=== PATIENT | male | born 1940 | race Caucasian/White ===

== ENCOUNTER 2017-02-28 14:07 | Emergency (ER) | payer OTHER ==
[~2017-02-28] VITALS: Ht 172.7 cm; Wt 115.0 kg
[2017-02-28 14:35] VITALS: BP 148/67; PULSE 64; RESP 18; TEMP 97.9; O2SAT 95
[2017-02-28] MEDS ORDERED: HYDR-3533 PO (15:09)
--- NOTE | 2017-02-28 16:11 | PD ---
HPI Chief Complaint: Allergic/Adverse Reaction Time Seen by Provider: 16:06 Travel History International Travel<30 days: No Contact w/Intl Traveler<30days: No Traveled to known affect area: No History of Present Illness HPI Patient [place] Department from the [place] after a near syncopal episode that occurred after getting a CT scan done today. Patient reports that his doctor told him take half a hydrocodone tablet as needed for pain for possible kidney stone however when the prescription arrived it stated to take a whole tablet. Patient states that he took 2 tablets yesterday and one today. Patient states that after the CAT scan done for possible kidney stone he was unable to get off the CAT scan secondary to feeling diaphoretic, dizzy, nauseous , and having left low back pain. Patient states he was taken to the triage area had some unknown medications injected of up his nose which alleviated his symptoms. Patient reports history of syncope in the past in the center for workup for this. 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 Patient reports that he had a cardiac cath lab radiology technologist that he had had for 2 years with no abnormalities noted. Patient denies any chest pain, shortness breath, fevers, vomiting, abdominal pain, neck pain, headache, or other concerns. Patient reports when he takes hydrocodone makes him feel loopy. EMS reports the patient 's respiratory rate was 13 prior to receiving Narcan at the [place]. [facility] Past Medical History Diabetes: Yes Hypertension: Yes Social History Tobacco Use: No Substance Use: No Allergies-Medications (Allergen,Severity, Reaction): Coded Allergies: codeine (Verified Allergy, Severe, Lethargy, 02/28/17) hydrocodone (Verified Allergy, Severe, Lethargy, 02/28/17) hydromorphone (Verified Allergy, Severe, Lethargy, 02/28/17) morphine (Verified Allergy, Severe, Lethargy, 02/28/17) Reported Meds & Prescriptions Reported Meds & Active Scripts Active Reported Lortab (Hydrocodone-Acetaminophen) 5-325 Mg Tab 1 Tab PO QID PRN Physical Exam Narrative GENERAL: Well-developed, overly nourished, in no acute distress, and non-ill appearing. SKIN: Focused skin assessment warm and dry. HEAD: Atraumatic. Normocephalic. EYES: Pupils equal and round. EOMI. No scleral icterus. No injection or drainage. ENT: No nasal bleeding or discharge. Mucous membranes pink and moist. NECK: Trachea midline. No JVD. Supple. No nuclear rigidity. CARDIOVASCULAR: Regular rate and rhythm. No murmur appreciated. RESPIRATORY: No accessory muscle use. No respiratory distress. Clear to auscultation. Breath sounds equal bilaterally. GASTROINTESTINAL: Abdomen soft, non-tender, nondistended, and no guarding. Hepatic and splenic margins not palpable. Normal bowel sounds 4. No pulsatile mass. MUSCULOSKELETAL: No obvious deformities. No clubbing. No cyanosis. No edema. Full range of motion. NEUROLOGICAL: Awake and alert. No obvious cranial nerve deficits. Motor grossly within normal limits. Normal speech. PSYCHIATRIC: Appropriate mood and affect; insight and judgment normal. Data Data Last Documented VS Vital Signs Date Time Temp Pulse Resp B/P (MAP) Pulse Ox O2 Delivery O2 Flow Rate FiO2 02/28/17 17:43 71 18 140/77 (98) 74 20 155/87 (109) 77 20 148/76 (100) 02/28/17 16:30 97 02/28/17 14:35 97.9 Orders Orders Blood Glucose (02/28/17 14:44) Iv Access Insert/Monitor (02/28/17 14:44) Electrocardiogram (02/28/17 16:06) Complete Blood Count With Diff (02/28/17 16:06) Comprehensive Metabolic Panel (02/28/17 16:06) Magnesium (Mg) (02/28/17 16:06) Ckmb (Isoenzyme) Profile (02/28/17 16:06) Troponin I (02/28/17 16:06) Act Partial Throm Time (Ptt) (02/28/17 16:06) Prothrombin Time / Inr (Pt) (02/28/17 16:06) Urinalysis - C+S If Indicated (02/28/17 16:06) Chest, Single Ap (02/28/17 16:06) Ct Brain W/O Iv Contrast(Rout) (02/28/17 16:06) Ecg Monitoring (02/28/17 16:06) Oximetry (02/28/17 16:06) Sodium Chloride 0.9% Flush (Ns Flush) (02/28/17 16:15) Orthostatic Vital Signs (02/28/17 16:06) Ct Abd/Pel W/O Iv Contrast (02/28/17 16:11) Ed Discharge Order (02/28/17 18:37) Labs Laboratory Tests Test 02/28/17 16:30 02/28/17 17:45 White Blood Count 12.5 TH/MM3 Red Blood Count 5.11 MIL/MM3 Hemoglobin 13.4 GM/DL Hematocrit 41.3 % Mean Corpuscular Volume 80.8 FL Mean Corpuscular Hemoglobin 26.1 PG Mean Corpuscular Hemoglobin Concent 32.3 % Red Cell Distribution Width 15.2 % Platelet Count 245 TH/MM3 Mean Platelet Volume 9.1 FL Neutrophils (%) (Auto) 82.8 % Lymphocytes (%) (Auto) 12.2 % Monocytes (%) (Auto) 4.0 % Eosinophils (%) (Auto) 0.5 % Basophils (%) (Auto) 0.5 % Neutrophils # (Auto) 10.4 TH/MM3 Lymphocytes # (Auto) 1.5 TH/MM3 Monocytes # (Auto) 0.5 TH/MM3 Eosinophils # (Auto) 0.1 TH/MM3 Basophils # (Auto) 0.1 TH/MM3 CBC Comment DIFF FINAL Differential Comment Prothrombin Time 10.7 SEC Prothromb Time International Ratio 1.0 RATIO Activated Partial Thromboplast Time 25.4 SEC Blood Urea Nitrogen 19 MG/DL Creatinine 1.00 MG/DL Random Glucose 156 MG/DL Total Protein 7.3 GM/DL Albumin 3.6 GM/DL Calcium Level 8.6 MG/DL Magnesium Level 1.5 MG/DL Alkaline Phosphatase 80 U/L Aspartate Amino Transf (AST/SGOT) 50 U/L Alanine Aminotransferase (ALT/SGPT) 59 U/L Total Bilirubin 0.4 MG/DL Sodium Level 138 MEQ/L Potassium Level 4.3 MEQ/L Chloride Level 104 MEQ/L Carbon Dioxide Level 23.0 MEQ/L Anion Gap 11 MEQ/L Estimat Glomerular Filtration Rate 73 ML/MIN Total Creatine Kinase 75 U/L Troponin I LESS THAN 0.02 NG/ML Urine Color YELLOW Urine Turbidity CLEAR Urine pH 5.0 Urine Specific [place] 1.020 Urine Protein TRACE mg/dL Urine Glucose (UA) TRACE mg/dL Urine Ketones 10 mg/dL Urine Occult Blood NEG Urine Nitrite NEG Urine Bilirubin NEG Urine Urobilinogen LESS THAN 2.0 MG/DL Urine Leukocyte Esterase MOD Urine RBC 2 /hpf Urine WBC 7 /hpf Urine Squamous Epithelial Cells 1 /hpf Urine Mucus FEW /lpf Microscopic Urinalysis Comment CULT NOT INDICATED MDM Medical Decision Making Medical Screen Exam Complete: Yes Emergency Medical Condition: Yes Interpretation(s) EKG reviewed by Dr. Lee shows normal sinus rhythm with ventricular is 64. Right bundle branch block. Left axis deviation. No STEMI. Last Impressions Head CT 02/28/17 1606 Signed Impressions: Service Date/Time: Tuesday, February 28, 2017 17:04 - CONCLUSION: Negative for an acute process. Mickey Panda MD FACR Chest X-Ray 02/28/17 1606 Signed Impressions: Service Date/Time: Sunday, February 28, 2017 16:14 - CONCLUSION: Compensated cardiomegaly otherwise negative Board Certified Radiologist. This report was verified electronically. CT the abdomen pelvis read by the radiologist shows: 1. Nonobstructing stone on the right. 2. I do not see any hydroureter to suggest a recently passed stone. 3. No other significant abnormality is appreciated. Differential Diagnosis Syncope, allergic reaction, unintentional overdose, electrolyte abnormality, renal calculi, vasovagal reaction, other Narrative Course Patient was seen and examined. Initial laboratory radiological studies were ordered. IV was established and patient was placed on cardiac monitoring. Patient in no obvious distress upon re-evaluation. Patient was monitored in the ER for little over 4 hours with no change in respiratory rate or mental status. All pertinent laboratory/Radiology result(s) discussed with patient/ family. Discussed patient with Dr. Lee prior to discharge, who is in agreement with plan of care and disposition. Any questions/concerns in reference to patient diagnosis/condition discussed and clarified prior to patient's discharge. Reinforced sheer importance of close follow up with patient 's primary physician or primary care clinic. Instructed patient to return to ED immediately, if symptoms return/worsen. Patient showed understanding of above instructions. Further instructions and recommendations were detailed in discharge paperwork. Patient ambulated without difficulty out of ED at discharge. Diagnosis Primary Impression: Overdose opiate Qualified Codes: T40.601A - Poisoning by unspecified narcotics, accidental ( unintentional), initial encounter Patient Instructions: General Instructions Additional Instructions: Follow-up with your primary care physician tomorrow for reevaluation. Stop taking hydrocodone. Use [id number] Tylenol as needed for pain control. Follow instructions on the packaging. Return to the emergency department if symptoms get worse. Disposition: 01 DISCHARGE HOME Condition: Francisco Rivera Feb 28, 2017 16:11
[2017-02-28] MEDS ORDERED: SODIUM CHLORIDE 0.9% FLUSH 10 ML FLUSH IVF PRN (16:15)
[2017-02-28 16:30] VITALS: O2SAT 97
[2017-02-28 16:41] LABS: AUTOMATED NEUTROPHIL # 10.4 TH/MM3 (1.8-7.7); BASOPHIL # 0.1 TH/MM3 (0-0.2); BASOPHIL % 0.5 % (0.0-2.0); EOSINOPHIL # 0.1 TH/MM3 (0-0.4); EOSINOPHIL % 0.5 % (0.0-4.0); HEMATOCRIT 41.3 % (39.0-51.0); HEMO FLAGS DIFF FINAL; LYMPH % 12.2 % (9.0-44.0); LYMPHOCYTE # 1.5 TH/MM3 (1.0-4.8); MEAN CELL VOLUME 80.8 FL (80.0-100.0); MEAN CORPUSCULAR HEMOGLOBIN 26.1 PG (27.0-34.0); MEAN CORPUSCULAR HGB CONC 32.3 % (32.0-36.0); NEUT % 82.8 % (16.0-70.0); PLATELET COUNT 245 TH/MM3 (150-450); RED BLOOD COUNT 5.11 MIL/MM3 (4.50-5.90); RED CELL DISTRIBUTION WIDTH 15.2 % (11.6-17.2); WHITE BLOOD COUNT 12.5 TH/MM3 (4.0-11.0)
[2017-02-28 16:49] LABS: APTT (PATIENT) 25.4 SEC (24.3-30.1); PROTHROMBIN TIME - PATIENT 10.7 SEC (9.8-11.6)
--- NOTE | 2017-02-28 16:56 | RADRPT ---
EXAM DATE/TIME: 02/28/2017 16:14 [facility] COMPARISON: No previous studies available for comparison. INDICATIONS : Patient became weak on the way to [facility] MEDICAL HISTORY : None. SURGICAL HISTORY : None. ENCOUNTER: Initial ACUITY: 1 day PAIN SCORE: 0/10 LOCATION: Bilateral cranial FINDINGS: The lungs are clear. The heart is minimally enlarged. The pulmonary vascularity is normal. There is n o evidence for infiltrate or failure. The portion of the bony skeleton visualized is unremarkable. CONCLUSION: Compensated cardiomegaly otherwise negative Board Certified Radiologist. This report was verified electronically.
[2017-02-28 17:04] LABS: ALT (GPT) 59 U/L (12-78); ANION GAP 11 MEQ/L (5-15); AST (GOT) 50 U/L (15-37); BLOOD UREA NITROGEN 19 MG/DL (7-18); CHLORIDE 104 MEQ/L (98-107); GLOMERULAR FILTRATION RATE 73 ML/MIN (>89); MAGNESIUM 1.5 MG/DL (1.5-2.5); POTASSIUM 4.3 MEQ/L (3.5-5.1); SODIUM (NA) 138 MEQ/L (136-145)
[2017-02-28 17:08] LABS: ALKALINE PHOSPHATASE 80 U/L (45-117); TOTAL BILIRUBIN ADULT 0.4 MG/DL (0.2-1.0)
[2017-02-28 17:10] LABS: CREATINE KINASE 75 U/L (39-308)
--- NOTE | 2017-02-28 17:28 | RADRPT ---
EXAM DATE/TIME: 02/28/2017 17:04 [facility] COMPARISON: No previous studies available for comparison. INDICATIONS : Dizziness. RADIATION DOSE: 56.35 CTDIvol (mGy) MEDICAL HISTORY : None SURGICAL HISTORY : None. ENCOUNTER: Initial ACUITY: 1 day PAIN SCALE: 5/10 LOCATION: cranial TECHNIQUE: Multiple contiguous axial images were obtained of the head. Using automated exposure control and adj ustment of the mA and/or kV according to patient size, radiation dose was kept as low as reasonably a chievable to obtain optimal diagnostic quality images. DICOM format image data is available electro nically for review and comparison. FINDINGS: CEREBRUM: The ventricles are normal for age. No evidence of midline shift, mass lesion, hemorrhage or acute in farction. No extra-axial fluid collections are seen. POSTERIOR FOSSA: The cerebellum and brainstem are intact. The 4th ventricle is midline. The cerebellopontine angle i s unremarkable. EXTRACRANIAL: The visualized portion of the orbits is intact. SKULL: The calvaria is intact. No evidence of skull fracture. CONCLUSION: Negative for an acute process. Mickey Panda MD FACR on February 28, 2017 at 17:25 Board Certified Radiologist. This report was verified electronically.
--- NOTE | 2017-02-28 17:39 | RADRPT ---
EXAM DATE/TIME: 02/28/2017 17:08 [facility] COMPARISON: No previous studies available for comparison. INDICATIONS : Right flank pain. ORAL CONTRAST: No oral contrast ingested. RADIATION DOSE: 30.48 CTDIvol (mGy) MEDICAL HISTORY : None SURGICAL HISTORY : None. ENCOUNTER: Initial ACUITY: 1 day PAIN SCALE: 5/10 LOCATION: Abdomen TECHNIQUE: Volumetric scanning of the abdomen and pelvis was performed. Using automated exposure control and adjustment of the mA and/or kV according to patient size, radiation dose was kept as low as reasonably achievable to obtain optimal diagnostic quality images. DICOM format image data is av ailable electronically for review and comparison. FINDINGS: The lung bases are clear. Moderate coronary artery calcifications are noted. The liver is free of focal defects. Spleen is unremarkable. The pancreas and adrenal glands appear normal. RIGHT KIDNEY: There is a nonobstructing 4 mm stone midportion of the right kidney. There are no c alcifications along the expected course of the right ureter. LEFT KIDNEY: There are no calculi in the left kidney. There is no retroperitoneal adenopathy. In the pelvis, the prostate is prominent. Scattered phleboliths are noted. There is no inguinal her charis. CONCLUSION: 1. Nonobstructing stone on the right. 2. I do not see any hydroureter to suggest a recently passed stone. 3. No other significant abnormality is appreciated. Mickey Panda MD FACR on February 28, 2017 at 17:33 Board Certified Radiologist. This report was verified electronically.
[2017-02-28 17:43] VITALS: BP_SYST 140; BP_SYST 148; BP_SYST 155; BP_DIAS 76; BP_DIAS 77; BP_DIAS 87; RESP 18; RESP 20
[2017-02-28 18:27] LABS: BLOOD, URINE NEG (NEG); COMMENT (UR) CULT NOT INDICATED; CULTURE IF INDICATED CULT NOT INDICATED; GLUCOSE,URINE TRACE mg/dL (NEG); KETONE, URINE 10 mg/dL (NEG); MUCUS URINE FEW /lpf (OCC); NITRITE,URINE NEG (NEG); SQUAMOUS EPITHELIAL CELL URINE 1 /hpf (0-5); URINE COLOR YELLOW (YELLW/STRAW)
--- NOTE | 2017-03-01 12:17 | EKG ---
Date Performed: 02/28/2017 Time Performed: 16:38:42 PTAGE: 76 years EKG: Sinus rhythm MARKED LEFT AXIS DEVIATION RIGHT BUNDLE BRANCH BLOCK ABNORMAL ECG No prior tracing DOCTOR: Rekha Eldridge Interpretating Date/Time 03/02/2017 06:56:36
== END 2017-02-28 19:21 | disposition home or self-care (01) ==
LOC: NEPE 14:07
DX: T40.601A Poisoning by unspecified narcotics, accidental (unintentional), initial encounter (principal); R94.31 Abnormal electrocardiogram [ECG] [EKG]; E11.9 Type 2 diabetes mellitus without complications; I10 Essential (primary) hypertension
CPT/HCPCS: 70450; 71010; 74176; 80053; 81001; 82550; 83735; 84484; 85025; 85610; 85730; 93005; 99285